=== PATIENT | female | born 1955 | race Two or more races ===

== ENCOUNTER 2020-12-04 07:51 | Day surgery (SDC) | payer OTHER ==
[~2020-12-04] VITALS: Ht 157.5 cm; Wt 71.7 kg
[2020-12-04] MEDS ORDERED: diphenhydrAMINE 50 MG/ML VIAL ONE (09:11)
[2020-12-04] MEDS ORDERED: fentaNYL citrate 0.05 MG/ML VIAL ONE (09:11)
[2020-12-04] MEDS ORDERED: MIDAZOLAM 5 MG/5 ML VIAL ONE (09:11)
[2020-12-04] MEDS ORDERED: LIDOCAINE 2% 100 MG/5 ML UJET TP ONE (09:11)
[2020-12-04] MEDS ORDERED: fentaNYL citrate 0.05 MG/ML VIAL IVP ONE (10:00)
[2020-12-04] MEDS ORDERED: MIDAZOLAM 5 MG/5 ML VIAL IV ONE (10:05)
== END 2020-12-04 10:25 | disposition home or self-care (01) ==
LOC: MDS 07:51 → MMU 08:04 → MDS 10:25
PROVIDERS: ATTEND Internal Medicine Gastroenterology
DX: Z12.11 Encounter for screening for malignant neoplasm of colon (principal); K57.30 Diverticulosis of large intestine without perforation or abscess without bleeding; K52.9 Noninfective gastroenteritis and colitis, unspecified; I10 Essential (primary) hypertension; E78.5 Hyperlipidemia, unspecified; Z88.1 Allergy status to other antibiotic agents; Z88.8 Allergy status to other drugs, medicaments and biological substances; Z79.82 Long term (current) use of aspirin; Z79.899 Other long term (current) drug therapy
CPT/HCPCS: 45380; 88305; J2250; J3010; J1200